=== PATIENT | female | born 1990 | race American Indian/Alaskan Native ===

== ENCOUNTER 2019-09-09 16:38 | Emergency (ER) | payer MEDICAID, OTHER ==
--- NOTE | 2019-09-09 18:01 | Event Note ---
ED Screening Note Date of service: 09/09/19 Time: 17:57 ED Screening Note: This initial assessment/diagnostic orders/clinical plan/treatment(s) is/are subject to change based on patients health status, clinical progression and re- assessment by fellow clinical providers in the ED. Further treatment and workup at subsequent clinical providers discretion. Patient/guardian urged not to elope from the ED as their condition may be serious if not clinically assessed and managed. 28 yo female c/o cough hoarseness x 3 days. Chest hurts with coughing. Denies SOB Initial orders include: CXR
--- NOTE | 2019-09-09 18:35 | XRay Report ---
CHEST 2 VIEWS INDICATION: COUGH. COMPARISON: 02/09/2013 FINDINGS: Support devices: None. Heart: Within normal limits. Lungs/pleura: No acute air space or interstitial disease. No pneumothorax. Additional findings: None. IMPRESSION: 1. No acute findings. Signer Name: Steven Adams MD Signed: 09/09/2019 6:30 PM Workstation Name: [id number]
[2019-09-09] MEDS ORDERED: predniSONE 20 MG TAB PO ONE (22:05)
[2019-09-09] MEDS ORDERED: FAMOTIDINE 20 MG TAB PO ONE (22:05)
[2019-09-09] MEDS ORDERED: IBUPROFEN 600 MG TAB PO ONE (22:05)
--- NOTE | 2019-09-09 22:41 | Emergency Department Report ---
- General Chief Complaint: Upper Respiratory Infection Stated Complaint: CHEST PAIN/THROAT PAIN Time Seen by Provider: 09/09/19 17:57 Source: patient Mode of arrival: Ambulatory Limitations: No Limitations - History of Present Illness Initial Comments: Patient is a 28-year-old -[place] female with no past medical history presents to the ED with complaint of acute onset persistent severe diffuse body aches, nasal and sinus congestion, sore throat, hoarseness and cough productive of yellowish phlegm with pleuritic chest pain for the last 3 days. Patient denies dizziness, fever, shortness of breath, abdominal pain, nausea, vomiting, diarrhea, dysuria, urinary frequency and urgency, neck pain or change in vision. MD Complaint: fever, cough, sore throat, rhinorrhea, nasal congestion -: Sudden, days(s) (3) Severity: severe Severity scale (0 -10): 7 Quality: sharp, aching Consistency: constant Improves With: nothing Worsens With: nothing Context: sick contacts Associated Symptoms: denies other symptoms, myalgias, headache, rhinorrhea, nasal congestion, sore throat, cough, chest pain. denies: fever, chills, diaph oresis, stiff neck, abdominal pain, nausea, vomiting, dysuria, rash, confusion, right sweats, epistaxis, hoarseness, ear pain, other Treatments Prior to Arrival: none - Related Data Previous Rx's Medication Instructions Recorded Last Taken Type Azithromycin [Zithromax Z-JOCELYN] 250 mg PO DAILY #6 tablet 09/09/19 Unknown Rx Benzonatate [Tessalon Perles] 100 mg PO Q8HR #30 capsule 09/09/19 Unknown Rx Ibuprofen [Motrin] 800 mg PO Q8HR PRN #20 tablet 09/09/19 Unknown Rx Prednisone [predniSONE 10 mg 10 mg PO .TAPER #21 tab.ds.pk 09/09/19 Unknown Rx (6-Day Pack, 21 Tabs)] Allergies Allergy/AdvReac Type Severity Reaction Status Date / Time No Known Allergies Allergy Unverified 09/23/13 22:55 ED Review of Systems ROS: Stated complaint: CHEST PAIN/THROAT PAIN Other details as noted in HPI Constitutional: malaise. denies: chills, fever Eyes: denies: eye pain, eye discharge, vision change ENT: throat pain, congestion. denies: ear pain Respiratory: cough. denies: shortness of breath, SOB with exertion, wheezing Cardiovascular: denies: chest pain, palpitations, dyspnea on exertion, syncope, paroxysmal nocturnal dyspnea Endocrine: no symptoms reported Gastrointestinal: denies: abdominal pain, nausea, vomiting, diarrhea Genitourinary: denies: urgency, dysuria, discharge Musculoskeletal: denies: back pain, joint swelling, arthralgia Skin: denies: rash, lesions Neurological: denies: headache, weakness, paresthesias Psychiatric: denies: anxiety, depression Hematological/Lymphatic: denies: easy bleeding, easy bruising ED Past Medical Hx - Past Medical History Previous Medical History?: Yes - Surgical History Past Surgical History?: No - Social History Smoking Status: Current Every Day Smoker Substance Use Type: None - Medications Home Medications: Home Medications Medication Instructions Recorded Confirmed Last Taken Type Azithromycin [Zithromax Z-JOCELYN] 250 mg PO DAILY #6 tablet 09/09/19 Unknown Rx Benzonatate [Tessalon Perles] 100 mg PO Q8HR #30 capsule 09/09/19 Unknown Rx Ibuprofen [Motrin] 800 mg PO Q8HR PRN #20 tablet 09/09/19 Unknown Rx Prednisone [predniSONE 10 mg 10 mg PO .TAPER #21 tab.ds.pk 09/09/19 Unknown Rx (6-Day Pack, 21 Tabs)] ED Physical Exam - General Limitations: No Limitations General appearance: alert, in no apparent distress - Head Head exam: Present: atraumatic, normocephalic, normal inspection - Eye Eye exam: Present: normal appearance, PERRL, EOMI. Absent: scleral icterus, conjunctival injection, periorbital swelling, periorbital tenderness - ENT ENT exam: Present: normal exam, mucous membranes moist, other (erythematous oropharynx; grossly congested nasal passages) - Neck Neck exam: Present: normal inspection, full ROM. Absent: tenderness, lymphadenopathy - Respiratory Respiratory exam: Present: normal lung sounds bilaterally. Absent: respiratory distress, wheezes, rhonchi, stridor, chest wall tenderness, accessory muscle use, decreased breath sounds, prolonged expiratory - Cardiovascular Cardiovascular Exam: Present: normal rhythm, tachycardia, normal heart sounds. Absent: systolic murmur, diastolic murmur, rubs, gallop - GI/Abdominal GI/Abdominal exam: Present: soft, normal bowel sounds. Absent: tenderness, rebound, hyperactive bowel sounds, hypoactive bowel sounds, mass - Extremities Exam Extremities exam: Present: normal inspection, full ROM, normal capillary refill - Back Exam Back exam: Present: normal inspection, full ROM. Absent: tenderness, CVA t enderness (R), CVA tenderness (L), muscle spasm, vertebral tenderness - Neurological Exam Neurological exam: Present: alert, oriented X3, CN II-XII intact, normal gait, reflexes normal - Psychiatric Psychiatric exam: Present: normal affect, normal mood - Skin Skin exam: Present: warm, dry, intact, normal color. Absent: rash ED Course Vital Signs 09/09/19 09/09/19 17:50 22:45 Temperature 97.8 F Pulse Rate 108 H 107 H Respiratory 18 17 Rate Blood Pressure 121/71 Blood Pressure 145/94 [Left] O2 Sat by Pulse 97 100 Oximetry - Reevaluation(s) Reevaluation #1: 09/09/19 22:47 This is a 28-year-old female who presented to the ED with nasal and sinus congestion, dry cough, sore throat, hoarseness, pleuritic chest pain with cough for 3 days. In the ED, patient is alert and oriented 3 and is not in distress, but tachycardic in triage. Chest x-ray shows no acute cardiopulmonary abnormalities. Patient was treated in the ED and discharged home on medications including antibiotics and steroids. On reevaluation, patient's pain is well controlled and tachycardia also resolved prior to the patient being discharged. Patient was advised to follow-up with her primary care physician in 7-10 days for reevaluation or return to the ED immediately if symptoms get worse. ED Medical Decision Making - Radiology Data Radiology results: report reviewed, image reviewed Chest x-ray shows no acute cardiopulmonary abnormalities or pneumonitis. - Medical Decision Making This is a 28-year-old female who presented to the ED with nasal and sinus congestion, dry cough, sore throat, hoarseness, pleuritic chest pain with cough for 3 days. In the ED, patient is alert and oriented 3 and is not in distress, but tachycardic in triage. Chest x-ray shows no acute cardiopulmonary abnormalities. Patient was treated in the ED and discharged home on medications including antibiotics and steroids. On reevaluation, patient's pain is well controlled and tachycardia also resolved prior to the patient being discharged. Patient was advised to follow-up with her primary care physician in 7-10 days for reevaluation or return to the ED immediately if symptoms get worse. - Differential Diagnosis Acute URI; Pneumonia; Strep Pharyngitis; Bronchitis; Tonsillitis Critical care attestation.: If time is entered above; I have spent that time in minutes in the direct care of this critically ill patient, excluding procedure time. ED Disposition Clinical Impression: Acute upper respiratory infection Acute bronchitis Qualifiers: Bronchitis organism: other organism Qualified Code(s): J20.8 - Acute bronchitis due to other specified organisms Acute pharyngitis Qualifiers: Pharyngitis/tonsillitis etiology: other specified organisms Qualified Code(s): J02.8 - Acute pharyngitis due to other specified organisms Disposition: TO HOME OR SELFCARE Is pt being admited?: No Does the pt Need Aspirin: No Condition: Stable Instructions: Pharyngitis (ED), Upper Respiratory Infection (ED), Acute Bronchitis (ED) Additional Instructions: Take medication with food, drink plenty of fluids and follow-up with your primary care physician in 7-10 days for reevaluation. Return to the ED immediately if symptoms get worse. Prescriptions: Ibuprofen [Motrin] 800 mg PO Q8HR PRN #20 tablet PRN Reason: Pain , Severe (7-10) Prednisone [predniSONE 10 mg (6-Day Pack, 21 Tabs)] 10 mg PO .TAPER #21 tab.ds.pk Benzonatate [Tessalon Perles] 100 mg PO Q8HR #30 capsule Azithromycin [Zithromax Z-JOCELYN] 250 mg PO DAILY #6 tablet Referrals: [facility] [Outside] - 3-5 Days Forms: Work/School Release Form(ED) Time of Disposition: 22:37 Print Language: ALBANIAN
[2019-09-09 23:22] VITALS: BP 145/94
== END 2019-09-09 22:45 | disposition home or self-care (01) ==
LOC: ED 16:38
DX: J06.9 Acute upper respiratory infection, unspecified (principal); J20.9 Acute bronchitis, unspecified; F17.200 Nicotine dependence, unspecified, uncomplicated; Z79.899 Other long term (current) drug therapy
CPT/HCPCS: 71046; 99283; J7512

== ENCOUNTER 2021-07-06 19:24 | Outpatient (CLI) | payer OTHER ==
[2021-07-06] MEDS ORDERED: LACTATED RINGERS 1,000 ML IV ONE (20:11)
[2021-07-06] MEDS ORDERED: oxyCODONE /ACETAMINOPHEN 5-325MG TAB PO ONE (20:26)
[2021-07-06] MEDS ORDERED: PROMETHAZINE 25 MG TAB PO ONE (20:27)
[2021-07-06] MEDS ORDERED: ALUM-MAG HYDROXIDE-SIMETHICONE 200-200-20MG/5ML ORAL LIQD 30 ML PO ONE (20:27)
[2021-07-06 21:35] LABS: Bilirubin,Urine NEG (Negative); Blood,Urine NEG (Negative); Color,Urine Yellow (Yellow); Mucus,Urine 2+ /HPF; Urobilinogen,Urine < 2.0 mg/dL (<2.0)
[2021-07-06 21:53] LABS: Hematocrit 29.5 % (30.3-42.9); Hemoglobin 9.7 gm/dl (10.1-14.3); Mean Corpuscular HGB Conc 33 % (30-34); Mean Corpuscular Volume 86 fl (79-97); Platelet Count 347 K/mm3 (140-440); Red Blood Count 3.44 M/mm3 (3.65-5.03)
[2021-07-06 22:08] LABS: Alanine Aminotransferase 15 units/L (7-56); Uric Acid 4.5 mg/dL (3.5-7.6)
[2021-07-06 22:28] VITALS: BP 129/69
[2021-07-06] MEDS ORDERED: LIDOCAINE-MPF (1%) 10 MG/1 ML VIAL 5 ML INFILTRATI ONE (22:28)
== END 2021-07-06 23:00 | disposition home or self-care (01) ==
LOC: TRG 19:24 → APU 19:26 → TRG 23:00
PROVIDERS: ATTEND Obstetrics & Gynecology
DX: O36.8130 Decreased fetal movements, third trimester, not applicable or unspecified (principal); O26.893 Other specified pregnancy related conditions, third trimester; R12 Heartburn; O24.419 Gestational diabetes mellitus in pregnancy, unspecified control; O10.913 Unspecified pre-existing hypertension complicating pregnancy, third trimester; O99.353 Diseases of the nervous system complicating pregnancy, third trimester; G43.909 Migraine, unspecified, not intractable, without status migrainosus; O99.343 Other mental disorders complicating pregnancy, third trimester; F41.9 Anxiety disorder, unspecified; Z87.891 Personal history of nicotine dependence; Z3A.32 32 weeks gestation of pregnancy
CPT/HCPCS: 36415; 59025; 81001; 82565; 83615; 84450; 84460; 84550; 85027; 96360; 96372; J0696; J7120; Q0169

== ENCOUNTER 2021-07-23 15:04 | Inpatient (IN) | payer OTHER ==
[2021-07-23] MEDS ORDERED: LACTATED RINGERS 1,000 ML ONE (16:36)
[2021-07-23] MEDS ORDERED: OXYTOCIN 10 UNIT/1 ML INJ IM PRN (18:16)
[2021-07-23] MEDS ORDERED: MINERAL OIL 30 ML ORAL LIQD PO PRN (18:16)
[2021-07-23] MEDS ORDERED: miSOPROStol 200 MCG TAB PR PRN (18:16)
[2021-07-23] MEDS ORDERED: TERBUTALINE 1 MG/1 ML INJ SUB-Q PRN (18:16)
[2021-07-23] MEDS ORDERED: LOPERAMIDE 2 MG CAP PO PRN (18:16)
[2021-07-23] MEDS ORDERED: LIDOCAINE (2%) 20 MG/1 ML VIAL 20 ML MDV INFILTRATI ONE (18:16)
[2021-07-23] MEDS ORDERED: METHYLERGONOVINE MALEATE 0.2 MG/ML VIAL IM PRN (18:16)
[2021-07-23] MEDS ORDERED: ePHEDrine SULFATE 50 MG/1 ML INJ IV PRN (18:16)
[2021-07-23] MEDS ORDERED: CARBOPROST TROMETHAMINE 250 MCG/1 ML INJ IM PRN (18:16)
[2021-07-23] MEDS ORDERED: LACTATED RINGERS 1,000 ML IV SCH (18:30)
[2021-07-23 18:45] LABS: Hematocrit 32.1 % (30.3-42.9); Hemoglobin 10.7 gm/dl (10.1-14.3); Mean Corpuscular HGB Conc 34 % (30-34); Mean Corpuscular Volume 86 fl (79-97); Platelet Count 351 K/mm3 (140-440); Red Blood Count 3.74 M/mm3 (3.65-5.03); Red Cell Distribution Width 15.2 % (13.2-15.2)
[2021-07-23] MEDS ORDERED: OXYTOCIN DRIP 30 UNITS/500 ML BAG IV SCH (19:00)
[2021-07-23] MEDS ORDERED: ACETAMINOPHEN 325 MG TAB PO PRN (21:46)
[2021-07-23] MEDS ORDERED: DOCUSATE SODIUM 100 MG CAP PO PRN (21:46)
[2021-07-23] MEDS ORDERED: ONDANSETRON 4 MG/2 ML INJ IV PRN (21:48)
[2021-07-23] MEDS ORDERED: DEXTROSE 50% IN WATER (25GM) 50 ML SYRINGE IV PRN (21:48)
[2021-07-23] MEDS ORDERED: INSULIN LISPRO 100 UNIT/ML SUB-Q SCH (22:00)
[2021-07-23] MEDS ORDERED: PRENATAL VIT27-FE FUMARATE-FOLIC ACID VIT TAB PO SCH (22:00)
[2021-07-23] MEDS ORDERED: BETAMET ACET/BETAMET NA PH 6 MG/ML INJ 5 ML MDV IM SCH (23:00)
--- NOTE | 2021-07-24 08:55 | History and Physical Report ---
History of Present Illness Date of examination: 07/24/21 Date of admission: 07/23/21 21:46 Chief complaint: sent for diabetic teaching History of present illness: Pt is a 30 year old ROSEANNA 08/30/21 at 34w5d who presents from home for diabetic control after being prescribed insulin, and not complying with that order. She reports movement and denies vaginal bleeding or leakage of fluid. She has had care at [facility] since 20 wks complicated by gestational diabetes, morbid obesity, genital herpes, lapse in care from 20-27 wks, migraines, limited anatomy scan, h/o PIH in prior , Her GBS status is unknown. Past History Past Medical History: migraines, other (morbid obesity ) Past Surgical History: no surgical history [employer] History: herpes Family/Genetic History: none Social history: no significant social history - Obstetrical History Expected Date of Delivery: 08/30/21 Actual Gestation: 34 Week(s) 5 Day(s) : 2 Para: 1 Hx # Term Pregnancies: 1 Number of Pregnancies: 0 Spontaneous Abortions: 0 Induced : 0 Number of Living Children: 1 Medications and Allergies Allergies Allergy/AdvReac Type Severity Reaction Status Date / Time No Known Allergies Allergy Verified 07/06/21 20:14 Home Medications Medication Instructions Recorded Confirmed Last Taken Type Azithromycin [Zithromax Z-JOCELYN] 250 mg PO DAILY #6 tablet 09/09/19 Unknown Rx Benzonatate [Tessalon Perles] 100 mg PO Q8HR #30 capsule 09/09/19 Unknown Rx Ibuprofen [Motrin] 800 mg PO Q8HR PRN #20 tablet 09/09/19 Unknown Rx Prednisone [predniSONE 10 mg 10 mg PO .TAPER #21 tab.ds.pk 09/09/19 Unknown Rx (6-Day Pack, 21 Tabs)] Active Meds: Active Medications Acetaminophen (Acetaminophen 325 Mg Tab) 650 mg PO Q4H PRN PRN Reason: Pain MILD(1-3)/Fever >100.5/[place] Betamethasone Acet/Betameth SodPhos (Betamet Acet/Betamet Na Ph 6 Mg/Ml Inj 5 Ml Mdv) 12 mg IM Q24H CHELSEA Stop: 07/24/21 23:01 Carboprost Tromethamine (Carboprost Tromethamine 250 Mcg/1 Ml Inj) 250 mcg IM ONCE PRN PRN Reason: Uterine Bleeding Dextrose (Dextrose 50% In Water (25gm) 50 Ml Syringe) 0 ml IV Q30MIN PRN; Protocol PRN Reason: Hypoglycemia Docusate Sodium (Docusate Sodium 100 Mg Cap) 100 mg PO Q12H PRN PRN Reason: Constipation Ephedrine Sulfate (Ephedrine Sulfate 50 Mg/1 Ml Inj) 10 mg IV Q2M PRN PRN Reason: Hypotension Lactated Ringer's (Lactated Ringers) 1,000 mls @ 125 mls/hr IV DIRECT CHELSEA Oxytocin/Sodium Chloride (Pitocin/Ns 30 Unit/500ml) 30 units in 500 mls @ 40 mls/hr IV TITR CHELSEA; Protocol Insulin Human Lispro (Insulin Lispro 100 Unit/Ml) 0 unit SUB-Q ACHS CHELSEA; Protocol Loperamide HCl (Loperamide 2 Mg Cap) 2 mg PO ONCE PRN PRN Reason: give with Hemabate Methylergonovine Maleate (Methylergonovine Maleate 0.2 Mg/Ml Vial) 0.2 mg IM ONCE PRN PRN Reason: Uterine Bleeding Mineral Oil (Mineral Oil 30 Ml Oral Liqd) 30 ml PO QHS PRN PRN Reason: Constipation Misoprostol (Misoprostol 200 Mcg Tab) 800 mcg [place] ONCE PRN PRN Reason: Uterine Bleeding Multivitamins/Iron/Calcium ( [id number] Fumarate-Folic Acid Vit Tab) 1 each PO QDAY CHELSEA Ondansetron HCl (Ondansetron 4 Mg/2 Ml Inj) 4 mg IV Q6H PRN PRN Reason: Nausea And Vomiting Oxytocin (Oxytocin 10 Unit/1 Ml Inj) 10 unit IM ONCE PRN PRN Reason: Uterine Bleeding Terbutaline Sulfate (Terbutaline 1 Mg/1 Ml Inj) 0.25 mg SUB-Q ONCE PRN PRN Reason: Hyperstimulation/Hypertonicity Review of Systems All systems: negative - Vital Signs Vital signs: Vital Signs Pulse BP 106 H 117/67 07/23/21 15:34 07/23/21 15:34 Temp Pulse Resp BP Pulse Ox 98.1 F 100 H 111/55 99 07/23/21 23:00 07/24/21 08:52 07/23/21 23:39 07/24/21 08:52 - Physical Exam Breasts: Positive: deferred Abdomen: Positive: soft (gravid, obese ) Uterus: Positive: enlarged (gravid ) Extremities: Positive: edema (trace ) - Obstetrical FHR: auscultation normal Uterine Contraction Monitor Mode: External Uterine Contraction Pattern: Absent Uterine Tone Measurement Phase: Resting Results Result Diagrams: 07/23/21 18:00 Abnormal lab results 07/23/21 07/23/21 Range/Units 18:00 23:34 WBC 18.1 H (4.5-11.0) K/mm3 POC Glucose 116 H (70-105) mg/dL All other labs normal. Assessment and Plan A: IUP at 34w5d Gestational Diabetes Morbid obesity Genital herpes without lesion or prodrome Lapse in care from 20-27 wks Migraines Limited anatomy scan h/o PIH in prior GBS status unknown P: Admit to labor and delivery Begin glucose monitoring (accucheck and 2 hour post prandials) Insulin sliding scale as indicated Ultrasound, BPP Monitor maternal and status
--- NOTE | 2021-07-24 10:09 | Ultrasound Report ---
ULTRASOUND BIOPHYSICAL PROFILE OBSTETRICAL ULTRASOUND, FOLLOW-UP INDICATION: IUP at 34 wks, well being. COMPARISON: None available. FINDINGS: breathing movement = 2 Gross body movement = 2 tone = 2 Qualitative amniotic fluid volume = 2 Total biophysical score = 8/8 Amniotic fluid index is 19.3 cm. Presentation is Cephalic. heart rate is 137-145 beats per minute. Biparietal diameter is 8.2 cm, 32 weeks 6 days Head circumference is 30.0 cm, 33 weeks 2 days Abdominal circumference 30.8 cm, 34 weeks 5 days Femur length is 6.1 cm, 31 weeks 4 days Estimated weight at this time is 4 pounds, 14 ounces Fetus is in the 16th percentile for weight No placental abnormalities are seen. IMPRESSION: 1. biophysical profile = 05/17 2. Fetus is in the 16th percentile for weight with estimated weight at this time a 4 pounds, 14 ounces. Signer Name: Charles Jolly MD Signed: 07/24/2021 10:05 AM Workstation Name: [id number]
[2021-07-24] MEDS ORDERED: BUTALB/ACETAMINOPHEN/CAFFEINE TAB PO PRN (11:00)
[2021-07-24 11:37] VITALS: BP 143/89
--- NOTE | 2021-07-24 15:40 | Event Note ---
Date: 07/24/21 On-call provider called secondary to patient had taken out her IV and was walking out of the door. She reports that she had an emergency and needed to leave, and she left AMA.
--- NOTE | 2021-07-24 15:41 | Discharge Summary ---
Providers - Providers Date of Admission: 07/23/21 21:46 Date of discharge: 07/24/21 Attending physician: TEMI CUTLER 07/24/21 08:51 psychiatry consult [Consult to Mental Health] [CONS] Stat Reason For Exam: IUP at 34 wks, depression, anxiety 07/24/21 08:52 Consult to Dietitian/Nutrition [CONS] Stat Physician Instructions: New diagnosis of gestational diabetes, diabetic t Reason For Exam: Reason for Consult: Diet education Primary care physician: TEMI CUTLER Hospitalization Reason for admission: other (Diabetic teaching, insulin initiation ) Hospital course: Patient was admitted from home secondary to need for diabetic teaching and insulin initiation. While hospitalized she had glucose monitoring and had an ultrasound to assess wellbeing. During her evaluation, she reports she had an emergency, who removed her own IV, and left AGAINST MEDICAL ADVICE. She will follow-up in the office next week with Dr. Tejada. Condition at discharge: Stable Disposition: 07 LEFT AGAINST MEDICAL ADVICE - Discharge Diagnoses (1) Gestational diabetes Status: Acute Qualifiers: Gestational diabetes mellitus control: unspecified Trimester: third trimester Qualified Code(s): O24.419 - Gestational diabetes mellitus in , unspecified control (2) Morbid obesity Status: Acute (3) Depression Status: Acute Qualifiers: Depression Type: unspecified Qualified Code(s): F32.A - Depression, unspecified (4) Anxiety Status: Acute Plan - Provider Discharge Summary Diet: other (Diabetic diet) Additional instructions: [] Smoking cessation referral if applicable(refer to patient education folder for contact #) [] Refer to [facility] Booklet Call your doctor immediately for: * Fever > 100.5 * Heavy vaginal bleeding ( >1 pad per hour) * Severe persistent headache * Shortness of breath * Reddened, hot, painful area to leg or breast * Drainage or odor from incision. * Keep incision clean and dry at all times and follow doctor's instructions regarding bathing/showering - Follow up plan Follow up: VIC TEJADA MD [Staff Physician] - 7 Days
== END 2021-07-24 13:40 | disposition left against medical advice (07) | DRG 781 ==
LOC: TRG 15:04 → LD 15:07 → TRG 21:46
PROVIDERS: ADMIT Obstetrics & Gynecology; ATTEND Obstetrics & Gynecology
DX: O24.419 Gestational diabetes mellitus in pregnancy, unspecified control (principal); O99.213 Obesity complicating pregnancy, third trimester; O98.313 Other infections with a predominantly sexual mode of transmission complicating pregnancy, third trimester; E66.01 Morbid (severe) obesity due to excess calories; A60.00 Herpesviral infection of urogenital system, unspecified; Z3A.34 34 weeks gestation of pregnancy; G43.909 Migraine, unspecified, not intractable, without status migrainosus; O26.893 Other specified pregnancy related conditions, third trimester; O99.343 Other mental disorders complicating pregnancy, third trimester; F32.A Depression, unspecified; F41.9 Anxiety disorder, unspecified; Z20.822 Contact with and (suspected) exposure to COVID-19
CPT/HCPCS: 36415; 76816; 76819; 82962; 85027; 86850; 86900; 86901; G0378; U0003